=== PATIENT | female | born 1990 | race Caucasian/White ===

== ENCOUNTER 2017-10-18 07:14 | Emergency (ER) | payer OTHER ==
[~2017-10-18] VITALS: Ht 160 cm; Wt 53.1 kg
[~2017-10-18 07:14] MED LIST: ADDERAL20 MG ORAL; BACTRIM DS TAB1 EAC1 ORAL; CEPHALEXIN500 MG ORAL; DIPHENHYDRAMINE25 M1 ORAL; GABAPENTIN300 MG ORAL; IBUPROFEN600 MG ORAL; KEFLEX500 MG ORAL; LAMICTAL ODT200 MG PO; LAMICTAL25 MG ORAL; MACROBID100 MG ORAL; NAPROXEN375 M2 ORAL; NORCO 10/3251 EA ORAL; NORCO 5-325 TA1 EACH ORAL; PEPCID20 MG ORAL; PHENAZOPYRIDIN200 MG ORAL; PREDNISONE20 MG ORAL; TRAZODONE HCL50 MG ORAL; TYLENOL325 MG ORAL; ZOFRAN ODT4 MG ORAL
[2017-10-18] MEDS ORDERED: PIROXICAM20 MG ORAL (07:26)
--- NOTE | 2017-10-18 07:39 | Emergency Room Report ---
History of Present Illness General Chief Complaint: Toothache Source: Patient, Medical Record Present Illness HPI The patient states that she has a cavity and severe pain in tooth 31. The patient has made an appointment with her dentist in [place]. However, the dentist appointment is in 2 days. She states that she has severe pain in this tooth. She denies fever or chills. She denies nausea or vomiting. She denies headache or neck pain. She has no other complaints. Allergies: Coded Allergies: BETA-BLOCKERS (BETA-ADRENERGIC BLOC (Verified Allergy, Unknown, 10/18/17) TRAZODONE (Verified Allergy, Unknown, 10/18/17) Patient History Past Medical History: see triage record, seizures Social History: Denies: smoking, alcohol use, drug use Last Menstrual Period: 09/29/17 Reviewed Nursing Documentation: PMH: Agreed; PSxH: Agreed Nursing Documentation-PMH Past Medical History: No History, Except For Hx Cardiac Problems: Yes Hx Seizures: Yes Review of Systems All Other Systems: negative except mentioned in HPI Physical Exam Vital Signs Date Time Temp Pulse Resp B/P (MAP) Pulse Ox O2 Delivery O2 Flow Rate FiO2 10/18/17 07:21 98.5 100 18 120/80 96 Room Air 98.4 Sp02 EP Interpretation: reviewed, normal General Appearance: no apparent distress, alert, GCS 15, non-toxic Head: normocephalic, atraumatic Eyes: bilateral eye normal inspection, bilateral eye PERRL ENT: hearing grossly normal, normal pharynx, no angioedema, normal voice, other - Darkening of center of Tooth 31 with some non-diplaced fracture of the posterior tooth. No gum changes. No erythema or swelling. Neck: normal inspection, full range of motion Respiratory: no respiratory distress, no retraction, no accessory muscle use, speaking full sentences Rectal: deferred Musculoskeletal: back normal, gait/station normal Neurologic: alert, oriented x3, responsive, motor strength/tone normal, sensory intact, speech normal Psychiatric: judgement/insight normal, memory normal, mood/affect normal, no suicidal/homicidal ideation Skin: normal color, no rash, warm/dry, well hydrated Medical Decision Making Diagnostic Impression: Primary Impression: Odontalgia Additional Impression: Dental caries ER Course This patient has a cavity with associated breakdown of tooth #31. There is no gum swelling or signs of infection, however, I will go ahead and start this patient on a course of antibiotics as a precaution. The patient has an appointment with her dentist in 2 days. This tooth will need to undergo filling /root canal. I will give the patient pain control medications. The patient was instructed on the importance of dentist intervention as this will need definitive treatment. The patient is given close return precautions and follow- up instructions. Last Vital Signs Date Time Temp Pulse Resp B/P (MAP) Pulse Ox O2 Delivery O2 Flow Rate FiO2 10/18/17 07:21 98.5 100 18 120/80 96 Room Air 98.4 Disposition: HOME, SELF-CARE Condition: Improved Loli Narayanan DO Oct 18, 2017 07:39
[2017-10-18] MEDS ORDERED: NORCO 5-325 TA1 EACH ORAL (07:41)
[2017-10-18] MEDS ORDERED: CLINDAMYCIN HC300 MG ORAL (07:41)
[2017-10-18] MEDS ORDERED: IBUPROFEN800 MG ORAL (07:41)
[2017-10-18] MEDS ORDERED: Norco 5mg/325mg tab ORAL ONE (07:45)
[2017-10-18] MEDS ORDERED: Norco 5mg/325mg tab ONE (07:45)
[2017-10-18] MEDS ORDERED: Ketorolac 60mg Inj ONE (07:45)
[2017-10-18] MEDS ORDERED: Ketorolac 60mg Inj IM ONE (07:45)
[2017-10-18 07:56] VITALS: BP 120/80
[2017-10-18 08:00] VITALS: BP 120/80
== END 2017-10-18 08:00 | disposition home or self-care (01) ==
LOC: EMR 07:30
DX: K08.89 Other specified disorders of teeth and supporting structures (principal); K02.9 Dental caries, unspecified; Z88.8 Allergy status to other drugs, medicaments and biological substances
CPT/HCPCS: 96372; 99283

== ENCOUNTER 2017-11-25 10:40 | Emergency (ER) | payer OTHER ==
[~2017-11-25] VITALS: Ht 160 cm; Wt 52.6 kg
[~2017-11-25 10:40] MED LIST changes: +CLINDAMYCIN HC300 MG ORAL; +IBUPROFEN800 MG ORAL; +PIROXICAM20 MG ORAL
[2017-11-25] MEDS ORDERED: [UNRECOGNIZED DRUG - OTHER] (11:02)
[2017-11-25] MEDS ORDERED: LORazepam 0.5mg tab ORAL ONE (12:00)
--- NOTE | 2017-11-25 13:34 | Emergency Room Report ---
History of Present Illness General Chief Complaint: General Complaint Source: Patient Present Illness HPI This patient c/o numbness feeling down left arm several hours. Then she developed shakiness, anxiety. No cp, sob, no street drugs. No cough, no fever. She has had a hx. of anxiety and was worried this could be serious or get worse. She took Tramadol prior to arrival. No trauma, no headache, no neck pain. Allergies: Coded Allergies: BETA-BLOCKERS (BETA-ADRENERGIC BLOC (Verified Allergy, Unknown, 10/18/17) TRAZODONE (Verified Allergy, Unknown, 10/18/17) Patient History Last Menstrual Period: on period Nursing Documentation-PMH Past Medical History: No History, Except For Hx Cardiac Problems: Yes History Of Psychiatric Problem: Yes - Bipolar Hx Seizures: Yes Review of Systems Constitutional: Reports: no symptoms Eye: Reports: no symptoms ENT: Reports: no symptoms Respiratory: Reports: no symptoms Cardiovascular: Reports: no symptoms Gastrointestinal: Reports: no symptoms Genitourinary: Reports: no symptoms Musculoskeletal: Reports: no symptoms Skin: Reports: no symptoms Psychiatric: Reports: no symptoms Neurological: Reports: no symptoms Endocrine: Reports: no symptoms Hematologic/Lymphatic: Reports: no symptoms Allergic: Reports: no symptoms All Other Systems: negative except mentioned in HPI Physical Exam Vital Signs Date Time Temp Pulse Resp B/P (MAP) Pulse Ox O2 Delivery O2 Flow Rate FiO2 11/25/17 10:56 98.6 122 18 138/90 95 Room Air 98.6 Sp02 EP Interpretation: reviewed, normal General Appearance: normal inspection, well appearing, no apparent distress, alert, GCS 15, non-toxic Head: normocephalic, atraumatic Eyes: bilateral eye normal inspection, bilateral eye PERRL, bilateral eye EOMI ENT: normal ENT inspection, hearing grossly normal, normal pharynx, no angioedema, normal voice, moist mucus membranes Neck: normal inspection, full range of motion, supple, no meningismus, no bony tend Respiratory: normal inspection, lungs clear, normal breath sounds, no rhonchi, no respiratory distress, no retraction, no accessory muscle use, no wheezing Cardiovascular #1: normal inspection, regular rate, rhythm, no edema Gastrointestinal: normal inspection, normal bowel sounds, non tender, soft, no mass, non-distended Musculoskeletal: gait/station normal, normal range of motion Neurologic: normal inspection, alert, oriented x3, responsive, motor strength/ tone normal Psychiatric: normal inspection, judgement/insight normal, memory normal, anxious Suicide Risk Assessment: Suicidal Ideation: No Had intent to initiate attempt: No Pt's plan for suicide attempt: No Has means to complete attempt: No Skin: normal inspection, normal color, no rash, warm/dry Medical Decision Making Diagnostic Impression: Primary Impression: Anxiety ER Course It's possible this could be a mild radiculopathy + anxiety. Or just anxiety. Nothing more significant. Pt. reassured, given small dose Ativan and Motrin here. [place] better. Rhythm Strip Diag. Results Rhythm Strip Time: 13:34 EP Interpretation: yes Rhythm: NSR Last Vital Signs Date Time Temp Pulse Resp B/P (MAP) Pulse Ox O2 Delivery O2 Flow Rate FiO2 11/25/17 13:13 98.6 11/25/17 12:00 94 20 100 Room Air 11/25/17 10:56 138/90 Disposition: HOME, SELF-CARE Referrals: [facility],REFERRING (PCP) Patient Instructions: Panic Attacks, [id number] Rm Peralta M.D. Nov 25, 2017 13:34
[2017-11-25 13:42] VITALS: BP 128/86
== END 2017-11-25 13:42 | disposition home or self-care (01) ==
LOC: EMR 11:30
DX: F41.9 Anxiety disorder, unspecified (principal)
CPT/HCPCS: 99282

== ENCOUNTER 2018-11-28 22:18 | Emergency (ER) | payer OTHER ==
[~2018-11-28] VITALS: Ht 160 cm; Wt 52.6 kg
[~2018-11-28 22:18] MED LIST changes: +[UNRECOGNIZED DRUG - OTHER]
[2018-11-28] MEDS ORDERED: PROZAC20 MG ORAL (22:28)
[2018-11-28 22:44] VITALS: BP 122/83
--- NOTE | 2018-11-28 22:44 | NUR ---
ED Nurse Note: Patient presents with complaints of anxiety and chest discomfort. EKG being performed at bedside. ERMD at bedside as well.
[2018-11-28] MEDS ORDERED: LORazepam Inj 2mg/ml 1ml IM ONE (22:45)
[2018-11-28 22:55] VITALS: BP 120/67
[2018-11-28] MEDS ORDERED: ATIVAN1 MG ORAL (23:37)
[2018-11-28] MEDS ORDERED: IBUPROFEN600 MG ORAL (23:37)
--- NOTE | 2018-11-28 23:37 | Emergency Room Report ---
History of Present Illness General Chief Complaint: General Complaint Source: Patient Present Illness HPI This is a 28-year-old female with a history of anxiety. She presents with chief complaint of chest pain. Onset last night. She said that she has not slept for 24 hours. She developed tachycardia with heart rate in the 132. She also has chest pain squeezing in nature. Her left arm went numb. She is also concerned that she dislocated her left shoulder a month ago. She reduce it herself. Since then she complaining of some pain and weakness. Physical therapist said that she probably has some tear and recommend MRI. She denies any fever chills but no nausea no vomiting. Nothing made it better. Nothing made it worse. She is currently seeing a psychiatrist and a psychologist. Allergies: Coded Allergies: BETA-BLOCKERS (BETA-ADRENERGIC BLOC (Verified Allergy, Unknown, 10/18/17) TRAZODONE (Verified Allergy, Unknown, 10/18/17) Patient History Past Medical History: see triage record, old chart reviewed Past Surgical History: none Pertinent Family History: none Social History: Denies: smoking Last Menstrual Period: 11/26/18 Now: No Immunizations: other Reviewed Nursing Documentation: PMH: Agreed; PSxH: Agreed Nursing Documentation-PMH Past Medical History: No History, Except For Hx Cardiac Problems: Yes History Of Psychiatric Problem: Yes - BIPOLAR TYPE 2, ANXIETY Hx Seizures: Yes Review of Systems Eye: Denies: eye pain, blurred vision ENT: Denies: ear pain, nose congestion, throat swelling Respiratory: Denies: cough, shortness of breath Cardiovascular: Reports: chest pain; Denies: palpitations Gastrointestinal: Denies: abdominal pain, diarrhea, nausea, vomiting Musculoskeletal: Denies: back pain, joint pain Skin: Denies: rash Neurological: Denies: headache, numbness Endocrine: Denies: increased thirst, increased urine Hematologic/Lymphatic: Denies: easy bruising All Other Systems: negative except mentioned in HPI Physical Exam Vital Signs Date Time Temp Pulse Resp B/P (MAP) Pulse Ox O2 Delivery O2 Flow Rate FiO2 11/28/18 22:21 98.4 98 22 122/83 (96) 98 Room Air Vitals normal Sp02 EP Interpretation: reviewed, normal General Appearance: well appearing, no apparent distress, alert Head: normocephalic, atraumatic Eyes: bilateral eye PERRL, bilateral eye EOMI ENT: hearing grossly normal, normal pharynx Neck: full range of motion, supple, no meningismus Respiratory: chest non-tender, lungs clear, normal breath sounds Cardiovascular #1: regular rate, rhythm, no murmur Gastrointestinal: normal bowel sounds, non tender, no mass, no organomegaly, no bruit, non-distended Musculoskeletal: back normal, gait/station normal, normal range of motion Psychiatric: anxious Medical Decision Making Diagnostic Impression: Primary Impression: Anxiety attack ER Course [place] with symptoms consistent with a panic attack. No evidence of ACS, PE, dissection. Better after Ativan. Does not want an x-ray her left shoulder. She preferred to get an MRI. This can be done as an outpatient. EKG Diagnostic Results Rate: normal Rhythm: NSR ST Segments: no acute changes Rhythm Strip Diag. Results EP Interpretation: yes Rate: 82 Rhythm: NSR, no PVC's, no ectopy Last Vital Signs Date Time Temp Pulse Resp B/P (MAP) Pulse Ox O2 Delivery O2 Flow Rate FiO2 11/28/18 22:55 98.4 93 19 120/67 100 Room Air Status: improved Disposition: HOME, SELF-CARE Condition: Stable Scripts Lorazepam* (ATIVAN*) 1 Mg Tablet 1 MG ORAL BID, #14 TAB Prov: Varun Moody MD 11/28/18 Ibuprofen* (MOTRIN*) 600 Mg Tablet 600 MG ORAL THREE TIMES A DAY, #30 TAB 0 Refills Prov: Varun Moody MD 11/28/18 Referrals: [facility],REFERRING (PCP) Additional Instructions: Follow-up with your doctor in 7 days. Return if symptoms worsen. Varun Moody MD Nov 28, 2018 23:37
[2018-11-28 23:42] VITALS: BP 120/67
--- NOTE | 2018-11-28 23:42 | NUR ---
ED Nurse Note: Patient cleared for discharge, no s/s of acute distress. ID band removed. Patient verbalized understanding of discharge instructions. Patient departed with all belongings accompanied by her sister.
--- NOTE | 2018-11-29 11:29 | Cardiology Report ---
APPROVED REPORT EKG Measurement Heart [id number] Normal sinus rhythm Normal ECG
== END 2018-11-28 23:43 | disposition home or self-care (01) ==
LOC: EMR 22:54
DX: F41.1 Generalized anxiety disorder (principal); F31.9 Bipolar disorder, unspecified; Z88.8 Allergy status to other drugs, medicaments and biological substances; R07.9 Chest pain, unspecified
CPT/HCPCS: 93005; 96372; 99283